=== PATIENT | female | born 1985 | race Caucasian/White ===

== ENCOUNTER 2016-12-08 21:20 | Inpatient (IN) | payer BC, OTHER ==
[2016-12-08] MEDS ORDERED: ELECTROLYTE-148 SOLN 500 ML IV ONE (22:19)
[2016-12-08] MEDS ORDERED: BUTORPHANOL TARTRATE 1 MG/ML VIAL IVPB ONE (22:38)
[2016-12-08] MEDS ORDERED: TUBERCULIN PPD 5 TU/0.1ML SYRINGE (IN PATIENT USE ONLY) ID ONE (22:45)
[2016-12-08] MEDS ORDERED: DEXTROSE 5%-LACTATED RINGERS 1,000 ML IV SCH (22:45)
[2016-12-08] MEDS ORDERED: ELECTROLYTE-148 SOLN 1,000 ML IV SCH (22:45)
--- NOTE | 2016-12-08 22:47 | HP ---
Past Medical History - Admission Chief Complaint: Active Labor History of Present Illness: 31 yo @ 38 weeks gestation, presents to L&D c/o rupture of membrane. Upon admission she was 6 cm dilated. History Source: Patient Limitations to Obtaining History: No Limitations - Past Medical History ...: 2 ...Para: 1 - Past Surgical History Past Surgical History: Yes: Appendectomy, Cholecystectomy, Hx Myomectomy: No Hx Transabdominal Cerclage: No - Alcohol/Substance Use Hx Alcohol Use: No History of Substance Use: reports: None - Social History Usual Living Arrangement: Yes: With Spouse History of Recent Travel: No Home Medications - Allergies Allergies/Adverse Reactions: Allergies Allergy/AdvReac Type Severity Reaction Status Date / Time vancomycin Allergy Verified 12/08/16 22:13 - Home Medications Home Medications: Ambulatory Orders Albuterol Sulfate Inhaler - [Ventolin HFA Inhaler -] 2 inh PRN 12/08/16 Vit/Iron Fumarate/FA [ Tablet] 1 tab PO DAILY 12/08/16 Family Disease History - Family Disease History Family History: Unremarkable Review of Systems - Review of Systems Constitutional: reports: No Symptoms Eyes: reports: No Symptoms HENT: reports: No Symptoms Neck: reports: No Symptoms Cardiovascular: reports: No Symptoms Respiratory: reports: No Symptoms Gastrointestinal: reports: No Symptoms Genitourinary: reports: Other ( Leakage of fluid) Breasts: reports: No Symptoms Reported Musculoskeletal: reports: No Symptoms Integumentary: reports: No Symptoms Neurological: reports: No Symptoms Endocrine: reports: No Symptoms Hematology/Lymphatic: reports: No Symptoms Psychiatric: reports: No Symptoms Pain Intensity: 8 Physical Exam - Maternity Constitutional: Yes: Well Nourished Eyes: Yes: Conjunctiva Clear HENT: Yes: Atraumatic Neck: Yes: Supple, Trachea Midline Cardiovascular: Yes: Regular Rate and Rhythm Lungs: Clear to auscultation - Abdominal Exam/OB Number of Fetuses: Single Presentation: Vertex - Vaginal Exam/OB Vaginal Bleediing: Yes Dilatation (cm): 6 Effacement (%): 100 Amniotic Membrane Status: Ruptured Nitrazine Test: Positive Amniotic Fluid: Yes: Clear Station: -2 - Physical Exam ...Motor Strength: WNL Psychiatric: Yes: Alert, Oriented Problem List - Problems (1) SROM (spontaneous rupture of membranes) Code(s): OWU8555 - (2) Previous section complicating , antepartum condition or complication Code(s): O34.219 - MATERNAL CARE FOR UNSP TYPE SCAR FROM PREVIOUS DEL Assessment/Plan SROM Anticipate
[2016-12-08 23:16] VITALS: BMI 34.2
[2016-12-08] MEDS ORDERED: OXYTOCIN 15 UNITS/ LR 250 ML 250 ML IVPB SCH (23:30)
[2016-12-08] MEDS ORDERED: D5W-LR W/ 20 UNITS OXYTOCIN 1,000 ML IV SCH (23:45)
[2016-12-09] MEDS ORDERED: METHYLERGONOVINE MALEATE 0.2 MG/1 ML AMP IM PRN (00:26)
[2016-12-09] MEDS ORDERED: BENZOCAINE 20% 57 GM BOTTLE TP PRN (00:26)
[2016-12-09] MEDS ORDERED: BENZOCAINE 28 GM HEMORRHOIDAL OINTMENT TP PRN (00:26)
[2016-12-09] MEDS ORDERED: BISACODYL 10 MG SUPP.RECT RC PRN (00:26)
[2016-12-09] MEDS ORDERED: WITCH HAZEL 50% (TUCKS) 40 PAD/JAR PAD TP PRN (00:26)
[2016-12-09] MEDS ORDERED: D5W-LR W/ 20 UNITS OXYTOCIN 1,000 ML IV SCH (00:30)
--- NOTE | 2016-12-09 00:30 | PN ---
Delivery - Delivery Vaginal Delivery: Spontaneous Type of Anesthesia: Local Episiotomy/Laceration: Midline EBL (cc): 300 Delivery, Single - Feeding Plan Initial Plan: Elected not to breastfeed exclusively throughout hospitalization Remarks - Remarks Remarks: Normal spontaneous vaginal delivery of a live infant boy over midline episiotomy. Nuchal cord x 1 clamped and cut. Placenta expelled spontaneously intact. Midline episiotomy repaired with 2.0 Chromic.
[2016-12-09] MEDS: FERROUS SO4 325 MG TABLET (FP) PO SCH ×3 (08:45→17:50)
[2016-12-09] MEDS: PRENATAL VITAMINS W/ FOLIC ACID TABLET (FP) PO SCH (09:38)
--- NOTE | 2016-12-10 08:30 | PN ---
Post Progress Note - Subjective Subjective: she offers no complaints Post Day: 1 Type of Delivery: Vital Signs: Vital Signs Temperature 98.6 F 12/09/16 21:00 Pulse Rate 97 H 12/09/16 21:00 Respiratory Rate 18 12/09/16 21:00 Blood Pressure 116/90 12/09/16 21:00 O2 Sat by Pulse Oximetry (%) 99 12/09/16 01:00 Uterus: Yes: Fundus Firm Abdomen/GI: Yes: Abdomen soft, Passing flatus, Tolerating PO Lochia: Yes: Rubra Lochia, amount: Moderate Extremities: Yes: Calves non-tender Perineum: Yes: Intact Activity: Ambulating - Labs Labs: cbc ix pending Assessment/Plan condition is stable s/p plan to continue current care
[2016-12-10 08:39] LABS: BASOPHIL 0.2 % (0-2.0); EOSINOPHIL 1.2 % (0-4.5); MCH 27.1 pg (25.7-33.7); MCHC 33.5 g/dl (32.0-36.0); MEAN CELL VOLUME 81.1 fl (80-96); MEAN PLT VOLUME 9.8 fl (7.5-11.1); NEUTROPHILS 71.5 % (42.8-82.8); PLATELET COUNT 179 K/MM3 (134-434); RDW 14.2 % (11.6-15.6); WHITE BLOOD COUNT 13.2 K/mm3 (4.0-10.0)
[2016-12-10] MEDS: FERROUS SO4 325 MG TABLET (FP) PO SCH ×3 (08:42→17:35)
[2016-12-10] MEDS: PRENATAL VITAMINS W/ FOLIC ACID TABLET (FP) PO SCH (10:13)
[2016-12-10] MEDS: IBUPROFEN 600 MG TABLET (FP) PO PRN (20:32)
[2016-12-10] MEDS: ACETAMINOPHEN 325 MG TABLET (FP) PO PRN (20:33)
[2016-12-10] MEDS ORDERED: SENNOSIDES/DOCUSATE COMBO (SENNA PLUS) TABLET (UD) PO PRN (22:00)
[2016-12-11] MEDS: PRENATAL VITAMINS W/ FOLIC ACID TABLET (FP) PO SCH (09:38)
[2016-12-11] MEDS: FERROUS SO4 325 MG TABLET (FP) PO SCH ×2 (09:38→13:10)
[2016-12-11] MEDS: IBUPROFEN 600 MG TABLET (FP) PO PRN (09:38)
[2016-12-11] MEDS: ACETAMINOPHEN 325 MG TABLET (FP) PO PRN (09:40)
[2016-12-11 11:37] VITALS: BP 125/69; PULSE 78; TEMP 97.8
== END 2016-12-11 15:00 | disposition home or self-care (01) | DRG 775 ==
LOC: JLDR 21:20 → J3W 12-09 02:20
PROVIDERS: ADMIT Obstetrics & Gynecology; ATTEND Obstetrics & Gynecology
PROC: 10E0XZZ Delivery of Products of Conception, External Approach (ICD-10-PCS; principal; 2016-12-09)
DX: O69.81X0 Labor and delivery complicated by cord around neck, without compression, not applicable or unspecified (principal); Z3A.38 38 weeks gestation of pregnancy; Z37.0 Single live birth
CPT/HCPCS: 36415; 59409; 85025

== ENCOUNTER 2017-02-06 05:13 | Day surgery (SDC) | payer BC, OTHER ==
[2017-02-02 10:15] VITALS: BMI 31.8
[2017-02-06] MEDS ORDERED: ROCURONIUM BROMIDE 50 MG/5 ML VIAL ONE (14:23)
[2017-02-06] MEDS ORDERED: PROPOFOL 20 ML ONE (14:23)
[2017-02-06] MEDS ORDERED: MIDAZOLAM HCL 2 MG/2 ML SINGLE DOSE VIAL ONE (14:23)
[2017-02-06] MEDS ORDERED: ONDANSETRON 4 MG/2 ML VIAL IVPB PRN (14:30)
[2017-02-06] MEDS ORDERED: oxyCODONE HCL 5 MG TABLET PO PRN (14:30)
[2017-02-06] MEDS ORDERED: IBUPROFEN 400 MG TABLET (FP) PO PRN (14:30)
[2017-02-06] MEDS ORDERED: ACETAMINOPHEN 325 MG TABLET (FP) PO PRN (14:30)
--- NOTE | 2017-02-06 14:30 | HP ---
History & Physical Update - History History: No Change - Physical Physical: No Change - Assessment Assessment: No Change - Plan Plan: No Change
[2017-02-06] MEDS ORDERED: ceFAZolin SODIUM 1 GM VIAL IVPB ONE (14:56)
[2017-02-06] MEDS ORDERED: NEOSTIGMINE METHYLSULFATE 0.5 MG/ML - 10 ML MDV ONE (15:23)
[2017-02-06] MEDS ORDERED: GLYCOPYRROLATE 0.2 MG/1 ML VIAL ONE (15:23)
--- NOTE | 2017-02-06 15:56 | OP ---
Operative Note - Note: Operative Date: 02/06/17 Pre-Operative Diagnosis: Multiparity; elective sterilization Operation: Laparoscopic bilat salpingectomy Post-Operative Diagnosis: Same as Pre-op Surgeon: Meghan Underwood Changer Fixer: Kyle Ko Anesthesiologist/LEARNING DEVELOPMENT SPECIALIST: Elder Gibson Anesthesia: General Specimens Removed: bilateral tubes Estimated Blood Loss (mls): 50 Fluid Volume Replaced (mls): 1,000 Operative Report Dictated: Yes
[2017-02-06] MEDS ORDERED: ACETAMINOPHEN 1000 MG/100 ML VIAL (NON FORMULARY) IVPB ONE ×2 (15:57→16:23)
--- NOTE | 2017-02-06 15:57 | SURG ---
Surgery Strategic Communications Manager Note Strategic Communications Manager: Kyle Ko PA-C Date of Service: 02/06/17 Diagnosis: Multiparity; elective sterilization Procedure: Laparoscopic bilateral salpingectomy I was present for the entirety of the operative procedure. For further detail, please refer to operative report. Visit type - Case Type Case Type: Scheduled Admission - New patient This patient is new to me today: Yes Date on this admission: 02/06/17
[2017-02-06] MEDS ORDERED: ONDANSETRON 4 MG/2 ML VIAL IVPUSH PRN (16:01)
[2017-02-06] MEDS ORDERED: PROMETHAZINE HCL 25 MG/1 ML VIAL IVPUSH PRN (16:01)
[2017-02-06] MEDS ORDERED: LACTATED RINGERS SOLUTION 1,000 ML IV SCH (16:15)
[2017-02-06] MEDS ORDERED: ACETAMINOPHEN INJECTION 100 ML IVPB ONE (16:16)
[2017-02-06 18:07] VITALS: TEMP 98
[2017-02-06] MEDS ORDERED: ONDANSETRON 4 MG/2 ML VIAL ONE (18:34)
[2017-02-06 20:00] VITALS: BP 116/60; PULSE 70
--- NOTE | 2017-02-07 14:42 | OP ---
DATE OF OPERATION: 02/06/2017 PREOPERATIVE DIAGNOSIS: Multiparity, voluntary sterilization. OPERATION: Laparoscopic bilateral salpingectomy. POSTOPERATIVE DIAGNOSIS: Multiparity, voluntary sterilization. SURGEON: Meghan Underwood MD TIE LAYER: EDD Hernandez ANESTHESIA: General. ANESTHESIOLOGIST: Magnolia Gibson MD DESCRIPTION OF PROCEDURE: Patient was taken to the operating room, placed in dorsal lithotomy position, prepped and draped in usual sterile fashion. A timeout was performed in accordance with hospital regulation. Lilly catheter was inserted into the bladder. A 5-mm umbilical incision was made. Veress needle was inserted into the cavity. Approximately 3-4 L of CO2 insufflated into the cavity. Veress needle was then removed, and a 5-mm trocar was inserted. Laparoscope and camera were attached. Visualization revealed normal tubes and ovaries. Two lower abdominal incisions on the left and the right were made, 5-mm incisions, and 5-mm trocars were inserted under direct visualization. A grasper and LigaSure were attached. Tubes were bilaterally grasped. On the left side, coagulation and cutting of the fallopian tube was performed. Salpingectomy was performed on the left. The same procedure was then repeated on the right side. Some bleeding was noted in the isthmic area on the left side, and the LigaSure was used to tie off the bleeding. Hemostasis was achieved. Irrigation done. Both tubes were then removed. CO2 was removed from the abdomen. Incisions were then closed using 4-0 Biosyn suture in a subcuticular fashion. Wound was washed and dressed. The patient tolerated the procedure well. Estimated blood loss: 50 mL. Honey [id number]
--- NOTE | 2017-02-08 17:52 | PATH ---
Surgical Pathology Report Patient Name: DANITA ROCK Med. Rec. #: [id number] /Age/Gender: 1985 (Age: 32) / F Account: [id number] Location: [facility] SURGICAL Taken: 02/06/2017 Received: 02/07/2017 Reported: 02/08/2017 Physicians: Meghan Underwood M.D. Specimen(s) Received A: FALLOPIAN TUBE RIGHT B: FALLOPIAN TUBE LEFT Clinical History Sterilization Final Diagnosis A. FALLOPIAN TUBE, RIGHT, SALPINGECTOMY: FIMBRIATED PORTION OF FALLOPIAN TUBE WITH COMPLETE CROSS SECTION. B. FALLOPIAN TUBE, LEFT, SALPINGECTOMY: FIMBRIATED PORTION OF FALLOPIAN TUBE WITH COMPLETE CROSS SECTION. Electronically Signed Abdirizak Valero M.D. Gross Description A. Received in formalin labeled "right fallopian tube" is a 4 cm in length fimbriated portion of fallopian tube. The outer surface is gordon purple and smooth. Sectioning reveals an unremarkable lumen. History Card Clerk sections are submitted in 2 cassettes as follows: 1-fimbria; 2-cross sections of fallopian tube. B. Received in formalin labeled "left fallopian tube" is a 5 cm in length fimbriated portion of fallopian tube. The outer surface is gordon purple and smooth. Sectioning reveals an unremarkable lumen. History Card Clerk sections are submitted in 2 cassettes as follows: 1-fimbria; 2-cross sections of fallopian tube. 02/07/201702/07/2017
== END 2017-02-06 19:40 | disposition home or self-care (01) ==
LOC: JASU-SURG 05:13
PROVIDERS: ATTEND Obstetrics & Gynecology
PROC: 0UT74ZZ Resection of Bilateral Fallopian Tubes, Percutaneous Endoscopic Approach (ICD-10-PCS; principal; 2017-02-06 11:30)
DX: Z30.2 Encounter for sterilization (principal)
CPT/HCPCS: 84703; 88302-TC; 94760